=== PATIENT | female | born 1990 | race Two or more races ===

== ENCOUNTER → 2025-04-05 | Outpatient (CLI) | payer MEDICAID, SELFPAY ==
--- NOTE | 2025-04-05 13:00 | XR_ITS ---
Examination: Breast ultrasound complete, bilateral Date and time of exam: April 05, 2025 1325 hours INDICATIONS: Bilateral breast tenderness and pain 2 years Technique: Real-time grayscale ultrasonographic imaging bilateral breasts, including all 4 quadrants as well as nipple retroareolar and axillary regions. Findings: Sonographic images right breast Multiple nodules, includin:00 nodule 6 x 5 mm lobular margins 9:00 nodule indistinct margins 16 x 9 mm 10:00 nodule circumscribed 8 x 9 mm 10:00 nodule circumscribed 11 x 10 mm Retroareolar nodule partially indistinct margins 25 x 25 mm Sonographic images left breast Multiple nodules, includin:00 nodule lobular margins 6 x 6 mm 4:00 nodule lobular margins 9 x 8 mm 9:00 nodule lobular margins 7 x 5 mm 10:00 nodule lobular margins 7 x 6 mm Left axillary mass without lymph node architecture 9 x 9 mm IMPRESSION: BI-RADS Category 4: Suspicious for malignancy Suspicious nodules 9:00 retroareolar region right breast, biopsy both nodules is needed to exclude breast carcinoma Suspicious left axillary mass, biopsy is needed to exclude carcinoma Recommend diagnostic mammography follow-up Continued 6 month bilateral breast sonography follow-up strongly recommended
== END | disposition home or self-care (01) ==
LOC: CDIM 13:06
DX: N63.15 Unspecified lump in the right breast, overlapping quadrants (principal); N63.32 Unspecified lump in axillary tail of the left breast; N63.41 Unspecified lump in right breast, subareolar
CPT/HCPCS: 76641

== ENCOUNTER 2025-09-10 14:19 | Emergency (ER) | payer MEDICAID, SELFPAY ==
[2025-09-10 14:26] VITALS: BP 116/80; PULSE 73; RESP 18; TEMP 36.8; O2SAT 100
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
== END 2025-09-10 15:30 | disposition home or self-care (01) ==
LOC: SERX 15:06
PROVIDERS: Emergency Provider Emergency Medicine; PCP Family Medicine
DX: T23.202A Burn of second degree of left hand, unspecified site, initial encounter (principal); T31.0 Burns involving less than 10% of body surface; X12.XXXA Contact with other hot fluids, initial encounter; Y93.G3 Activity, cooking and baking
CPT/HCPCS: 99281